=== PATIENT | male | born 1995 | race Caucasian/White ===

== ENCOUNTER 2022-02-26 20:08 | Emergency (ER) | payer SELFPAY ==
[2022-02-26 20:14] VITALS: BP 170/96; RESP 18; BMI 29.1
--- NOTE | 2022-02-26 20:38 | ED_ITS ---
HPI - Animal Bite General: Chief Complaint: Animal Bite Stated Complaint: snake bite Time Seen by Provider: 02/26/22 20:24 Source: patient Mode of arrival: ambulatory Limitations: no limitations History of Present Illness: 26-year-old male states he was walking out is wearing rubber boots and got bit by water moccasin on his right lower leg roughly an hour ago. He did not think it went through his boot originally but he likely did have a small puncture wound. He has no swelling at this site. He denies any pain currently denies any worsening proving factors. Associated symptoms: Deny chills, fever(s) or headache(s) Review of Systems Const: Denies: fever(s), chills, body aches or change in appetite Eyes: Denies: blurry vision or eye discomfort ENMT: Denies: throat pain or dental pain Card: Denies: chest pain Resp: Denies: dyspnea GI: Denies: abdominal pain, nausea, vomiting or diarrhea : Denies: dysuria Musc: Denies: neck pain or back pain Skin/Breast: Denies: rash Neuro: Denies: headache(s) Psych: Denies: depression [place]/Lymph: Denies: easy bruising All/Imm: Denies: urticaria Physical Exam Const: COMMON NORMALS: no acute distress, patient oriented x3 and healthy appearing HENMT: COMMON NORMALS: normocephalic and atraumatic HEAD & SCALP: normocephalic and atraumatic Eye: COMMON NORMALS: Equal, round and reactive pupils present and EOMs intact bilaterally PUPIL: Yes Equal, round and reactive pupils present Neck/C-Spine: COMMON NORMALS: full ROM and supple Chest: COMMONS NORMALS: normal inspection of the chest and normal palpation of entire chest wall Resp: COMMON NORMALS: normal respiratory effort, No retractions, No use of accessory muscles and clear to auscultation bilaterally AUSCULTATION: clear to auscultation bilaterally Cardio: COMMON NORMALS: regular rate, regular rhythm and No murmurs present (Cardio) RATE: regular rate RHYTHM: regular rhythm GI: COMMON NORMALS: Normal to inspection, nondistended, normoactive bowel sounds present, Soft to palpation, non-tender and no masses PALPATION: Yes Soft to palpation Extremity: NARRATIVE EXTREMITY EXAM: Small puncture wound to right lower leg no swelling at this time no erythema. Neuro: COMMON NORMALS: patient oriented x3, moves all extremities and no focal motor deficits Psych: COMMON NORMALS: mental status grossly normal, Normal thought process present and cooperative THOUGHT PROCESS: Normal thought process present Skin: COMMON NORMALS: no rashes or lesions noted and no wounds GENERAL SKIN EXAM: no rashes or lesions noted Course Vital Signs: Vital signs: Vital Signs Respiratory Rate 18 02/26/22 20:14 Blood Pressure 170/96 02/26/22 20:14 MDM - Animal Bite Medical Decision Making Patient presents here with a snakebite he has no signs of envenomation here I did observe him 2 hours he still has no redness or swelling or pain he is stable for discharge follow-up PCP return if worsening. Lab Data : 02/26/22 21:15 02/26/22 21:15 Laboratory Results WBC 9.4 10^3/uL (4.0-10.0) 02/26/22 21:15 RBC 5.08 10^6/uL (4.1-5.3) 02/26/22 21:15 Hgb 15.5 g/dL (11.7-16.6) 02/26/22 21:15 Hct 44.1 % (42.0-52.0) 02/26/22 21:15 MCV 86.8 fl (80-94) 02/26/22 21:15 MCH 30.5 pg (28.0-34.0) 02/26/22 21:15 MCHC 35.1 g/dL (30.0-36.0) 02/26/22 21:15 RDW 12.2 % (12.1-15.1) 02/26/22 21:15 Plt Count 280 10^3/cmm (130-400) 02/26/22 21:15 MPV 10.2 fL (7.4-10.4) 02/26/22 21:15 Neut % (Auto) 67.2 % 02/26/22 21:15 Lymph % (Auto) 24.7 % 02/26/22 21:15 [place] % (Auto) 6.6 % 02/26/22 21:15 Eos % (Auto) 0.6 % 02/26/22 21:15 Baso % (Auto) 0.3 % 02/26/22 21:15 Neut # (Auto) 6.29 10^3/uL (1.8-7.7) 02/26/22 21:15 Lymph # (Auto) 2.3 10^3/uL (0.8-4.8) 02/26/22 21:15 [place] # (Auto) 0.6 10^3/uL (0.2-0.9) 02/26/22 21:15 Eos # (Auto) 0.1 10^3/uL (0.0-0.8) 02/26/22 21:15 Baso # (Auto) 0.0 10^3/uL (0.0-0.1) 02/26/22 21:15 Nucleated RBC % (auto) 0 % 02/26/22 21:15 Nucleated RBCs # 0.0 /100WBC 02/26/22 21:15 PT 14.20 SECONDS (12.1-14.9) 02/26/22 21:15 INR 1.07 (0.8-1.2) 02/26/22 21:15 Sodium 139 mmol/L (136-145) 02/26/22 21:15 Potassium 3.6 mmol/L (3.5-5.1) 02/26/22 21:15 Chloride 103 mmol/L (98-107) 02/26/22 21:15 BUN 15 mg/dL (6-20) 02/26/22 21:15 Glucose 81 mg/dL (65-115) 02/26/22 21:15 Calculated Osmolality 288 mOsm/kg (285-295) 02/26/22 21:15 Calcium 9.1 mg/dL (8.5-10.5) 02/26/22 21:15 Discharge Plan Discharge Patient Disposition: Home Clinical Impression: Snake bite Condition: Stable Discharge Orders: Discharge ED (Routine); Ordered 02/26/22 Ordered By: Mina Brown Discharge Diet: Advance as tolerated Discharge Activity: Resume usual activity Patient Instructions: Snake Bite (ED) Coding Level of Care Code ED Hoisting Engineer Pile Driving for Valery Fwd Exam Comprehensive
[2022-02-26 21:24] LABS: Basophils % 0.3 %; Eosinophils # 0.1 10^3/uL (0.0-0.8); Eosinophils % 0.6 %; Hematocrit 44.1 % (42.0-52.0); Hemoglobin 15.5 g/dL (11.7-16.6); Lymphocytes # 2.3 10^3/uL (0.8-4.8); Lymphocytes % 24.7 %; Mean Corpuscular HGB Conc 35.1 g/dL (30.0-36.0); Mean Corpuscular Hemoglobin 30.5 pg (28.0-34.0); Mean Corpuscular Volume 86.8 fl (80-94); Mean Platelet Volume 10.2 fL (7.4-10.4); Monocytes # 0.6 10^3/uL (0.2-0.9); Monocytes % 6.6 %; Neutrophils # 6.29 10^3/uL (1.8-7.7); Neutrophils % 67.2 %; Nucleated Red Blood Cells % 0 %; Platelet Count 280 10^3/cmm (130-400); Red Blood Count 5.08 10^6/uL (4.1-5.3); Red Cell Distribution Width 12.2 % (12.1-15.1); White Blood Count 9.4 10^3/uL (4.0-10.0)
[2022-02-26 21:43] LABS: INR 1.07 (0.8-1.2)
[2022-02-26 21:52] LABS: Anion Gap 19.6 (5-19); Blood Urea Nitrogen 15 mg/dL (6-20); Calcium 9.1 mg/dL (8.5-10.5); Carbon Dioxide 20 mmol/L (22-29); Chloride 103 mmol/L (98-107); Glomerular Filtration Rate 66.7 mL/min (90-130); Glucose 81 mg/dL (65-115); Osmolality Calculated 288 mOsm/kg (285-295); Potassium 3.6 mmol/L (3.5-5.1); Sodium 139 mmol/L (136-145)
[2022-02-26 22:05] VITALS: BP 151/95; PULSE 81; RESP 16; O2SAT 98
== END 2022-02-26 22:06 | disposition home or self-care (01) ==
PROVIDERS: Emergency Provider Emergency Medicine
DX: T63.091A Toxic effect of venom of other snake, accidental (unintentional), initial encounter (principal)
CPT/HCPCS: 80048; 85025; 85610; 99282

== ENCOUNTER 2022-11-10 14:58 | Outpatient (CLI) | payer SELFPAY | END 2022-11-10 14:59 | disposition home or self-care (01) | LOC: SPT 14:59 | PROVIDERS: PCP Electrodiagnostic Medicine; Visit Provider Podiatrist Foot & Ankle Surgery | DX: Z46.89 Encounter for fitting and adjustment of other specified devices (principal); M25.571 Pain in right ankle and joints of right foot; S93.401D Sprain of unspecified ligament of right ankle, subsequent encounter; X58.XXXD Exposure to other specified factors, subsequent encounter | CPT/HCPCS: L4361 ==

== ENCOUNTER 2022-12-01 11:49 | Outpatient (CLI) | payer SELFPAY | END 2022-12-01 11:50 | disposition home or self-care (01) | LOC: SPT 11:49 | PROVIDERS: PCP Electrodiagnostic Medicine; Visit Provider Podiatrist Foot & Ankle Surgery | DX: Z46.89 Encounter for fitting and adjustment of other specified devices (principal); S93.401D Sprain of unspecified ligament of right ankle, subsequent encounter; S96.911D Strain of unspecified muscle and tendon at ankle and foot level, right foot, subsequent encounter; X58.XXXD Exposure to other specified factors, subsequent encounter | CPT/HCPCS: L1902 ==

== ENCOUNTER → 2022-12-14 10:45 | Outpatient (BNVA) | payer SELFPAY | PROVIDERS: PCP Electrodiagnostic Medicine; Visit Provider Podiatrist Foot & Ankle Surgery | DX: S93.401A Sprain of unspecified ligament of right ankle, initial encounter (principal); S96.911A Strain of unspecified muscle and tendon at ankle and foot level, right foot, initial encounter; W01.0XXA Fall on same level from slipping, tripping and stumbling without subsequent striking against object, initial encounter | CPT/HCPCS: 73610 ==

== ENCOUNTER 2025-06-21 14:57 | Emergency (ER) | payer SELFPAY ==
[2025-06-21 15:03] VITALS: BP 141/96; PULSE 90; RESP 18; TEMP 36.7; O2SAT 97
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
--- OUTSIDE RECORDS SUMMARY | 2025-06-21 16:09 | XMS_ITS | Encounter Summary ---
Author Organization [facility] Address [address] [place] [address] Care Team Providers Care Customs Examiner Name Role Phone Unavailable Primary Care Provider Unavailabl e Encounter Details Date Type Department Care Team (Latest Contact Info) Description 07/24/2003 Outpatient Historical [facility] Ear, Nose and Throat [address] [place] 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
--- OUTSIDE RECORDS SUMMARY | 2025-06-21 16:09 | XMS_ITS | Encounter Summary ---
Author Organization [facility] Address [address] [place] [address] Care Team Providers Care Vacuum Truck Driver Name Role Phone Unavailable Primary Care Provider Unavailabl e Encounter Details Date Type Department Care Team (Latest Contact Info) Description 06/21/2002 Outpatient Historical [facility] Ear, Nose and Throat E [place] 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
--- OUTSIDE RECORDS SUMMARY | 2025-06-21 16:09 | XMS_ITS | Encounter Summary ---
Author Organization [facility] Address [address] [place] [address] Care Team Providers Care Filler Block Inserter Remover Name Role Phone Unavailable Primary Care Provider Unavailabl e Encounter Details Date Type Department Care Team (Latest Contact Info) Description 11/18/1999 Outpatient Historical [facility] OT[facility]OLOG[facility] Jim Zacarias MD [address] [place] [address] Unspecified chronic suppurative otitis media (Primary Dx) Social History Tobacco Use Types Packs/Day Years Used Date Smoking Tobacco: Never Assessed Sex and Gender Information Value Date Recorded Sex Assigned at Not on file 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
--- OUTSIDE RECORDS SUMMARY | 2025-06-21 16:09 | XMS_ITS | Encounter Summary ---
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
--- OUTSIDE RECORDS SUMMARY | 2025-06-21 16:09 | XMS_ITS | Encounter Summary ---
Author Organization [facility] Address [address] [place] [address] Care Team Providers Care Silver Holloware Assembler Name Role Phone Unavailable Primary Care Provider Unavailabl e Encounter Details Date Type Department Care Team (Latest Contact Info) Description 06/09/2002 Outpatient Historical [facility] Ear, Nose and Throat E [place] [address] [place] [phone] Jim Zacarias MD [address] [place] [address] Hypertrophy tonsils/adenoids (Primary Dx); RESP SYSTEM DISEASE NEC Social History Tobacco Use Types Packs/Day Years Used Date Smoking Tobacco: Never Assessed Sex and Gender Information Value Date Recorded Sex Assigned at Not on file Legal Sex Male 4:49 AM BODY MAN Gender Identity Not on file Sexual Orientation Not on file documented as of this encounter Plan of Treatment Not on file documented as of this encounter Visit Diagnoses Diagnosis Hypertrophy tonsils/adenoids- Primary Hypertrophy of tonsil with adenoids Other diseases of respiratory system, not elsewhere classified documented in this encounter
--- OUTSIDE RECORDS SUMMARY | 2025-06-21 16:09 | XMS_ITS | Encounter Summary ---
Author Organization [facility] Address [address] [place] [address] Care Team Providers Care Brusher And Shearer Name Role Phone Unavailable Primary Care Provider Unavailabl e Encounter Details Date Type Department Care Team (Latest Contact Info) Description 09/30/1999 Outpatient Historical [facility] OTOL[facility]OLOGY Jim Zacarias MD [address] [place] [address] Other specified forms of hearing loss (Primary Dx) Social History Tobacco Use Types Packs/Day Years Used Date Smoking Tobacco: Never Assessed Sex and Gender Information Value Date Recorded Sex Assigned at Not on file Legal Sex Male 4:49 AM 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
--- OUTSIDE RECORDS SUMMARY | 2025-06-21 16:09 | XMS_ITS | Encounter Summary ---
Author Organization [facility] Address [address] [place] [address] Care Team Providers Care Marine Oiler Name Role Phone Unavailable Primary Care Provider Unavailabl e Encounter Details Date Type Department Care Team (Latest Contact Info) Description 12/16/2004 Outpatient Historical [facility] [address] [place] [address] Laurence French MD NO ADDRESS ON FILE CONVULSIONS, OTHER (CMS/HCC) (Primary Dx) Social History Tobacco Use Types Packs/Day Years Used Date Smoking Tobacco: Never Assessed Sex and Gender Information Value Date Recorded Sex Assigned at Not on file Legal Sex Male 4:49 AM SHIP WIRER Gender Identity Not on file Sexual Orientation Not on file documented as of this encounter Plan of Treatment Not on file documented as of this encounter Visit Diagnoses Diagnosis Other convulsions- Primary documented in this encounter
--- OUTSIDE RECORDS SUMMARY | 2025-06-21 16:09 | XMS_ITS | Encounter Summary ---
Author Organization [facility] Address [address] [place] [address] Care Team Providers Care Tree Wrapper Name Role Phone Unavailable Primary Care Provider Unavailabl e Encounter Details Date Type Department Care Team (Latest Contact Info) Description 12/25/2002 Outpatient Historical [facility] Ear, Nose and Throat E [place] 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
--- OUTSIDE RECORDS SUMMARY | 2025-06-21 16:09 | XMS_ITS | Encounter Summary ---
Author Organization [facility] Address [address] [place] [address] Care Team Providers Care Car Body Inspector Name Role Phone Unavailable Primary Care Provider Unavailabl e Encounter Details Date Type Department Care Team (Latest Contact Info) Description 12/11/2002 Outpatient Historical [facility] Ear, Nose and Throat [address] [place] 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
--- OUTSIDE RECORDS SUMMARY | 2025-06-21 16:09 | XMS_ITS | Encounter Summary ---
Author Organization [facility] Address [address] [place] [address] Care Team Providers Care Bench Jeweler Name Role Phone Unavailable Primary Care Provider Unavailabl e Encounter Details Date Type Department Care Team (Latest Contact Info) Description 04/09/2004 Outpatient Historical [facility] Ear, Nose and Throat [address] [place] 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
--- OUTSIDE RECORDS SUMMARY | 2025-06-21 16:09 | XMS_ITS | Encounter Summary ---
Author Organization [facility] Address [address] [place] [address] Care Team Providers Care Detective Chief Name Role Phone Unavailable Primary Care Provider Unavailabl e Encounter Details Date Type Department Care Team (Latest Contact Info) Description 12/25/2002 Outpatient Historical [facility] Ear, Nose and Throat [address] [place] 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
--- OUTSIDE RECORDS SUMMARY | 2025-06-21 16:09 | XMS_ITS | Encounter Summary ---
Author Organization [facility] Address [address] [place] [address] Care Team Providers Care Printing Worker Supervisor Name Role Phone Unavailable Primary Care Provider Unavailabl e Encounter Details Date Type Department Care Team (Latest Contact Info) Description 05/22/2003 Outpatient Historical [facility] Ear, Nose and Throat [address] [place] 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
--- OUTSIDE RECORDS SUMMARY | 2025-06-21 16:09 | XMS_ITS | Encounter Summary ---
Author Organization [facility] Address [address] [place] [address] Care Team Providers Care Head Girls Golf Coach Name Role Phone Unavailable Primary Care Provider Unavailabl e Encounter Details Date Type Department Care Team (Latest Contact Info) Description 06/22/2003 Outpatient Historical [facility] [address] [place] [address] Jim Zacarias MD [address] [place] [address] OTITIS MEDIA NOS (Primary Dx) Social History Tobacco Use Types Packs/Day Years Used Date Smoking Tobacco: Never Assessed Sex and Gender Information Value Date Recorded Sex Assigned at Not on file 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
--- OUTSIDE RECORDS SUMMARY | 2025-06-21 16:09 | XMS_ITS | Encounter Summary ---
Author Organization [facility] Address [address] [place] [address] Care Team Providers Care Office Admin Name Role Phone Unavailable Primary Care Provider Unavailabl e Encounter Details Date Type Department Care Team (Latest Contact Info) Description 06/22/2003 Outpatient Historical [facility] Ear, Nose and Throat 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
--- OUTSIDE RECORDS SUMMARY | 2025-06-21 16:09 | XMS_ITS | Encounter Summary ---
Author Organization [facility] Address [address] [place] [address] Care Team Providers Care Outpatient Coding Specialist Name Role Phone Unavailable Primary Care Provider Unavailabl e Encounter Details Date Type Department Care Team (Latest Contact Info) Description 01/17/2003 Outpatient Historical [facility] Ear, Nose and Throat [address] [place] 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
--- OUTSIDE RECORDS SUMMARY | 2025-06-21 16:09 | XMS_ITS | Encounter Summary ---
Author Organization [facility] Address [address] [place] [address] Care Team Providers Care Real Estate Listing Consultant Name Role Phone Unavailable Primary Care Provider Unavailabl e Encounter Details Date Type Department Care Team (Latest Contact Info) Description 05/04/2003 Outpatient Historical [facility] [place] [facility] Throat 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
--- OUTSIDE RECORDS SUMMARY | 2025-06-21 16:09 | XMS_ITS | Encounter Summary ---
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
--- OUTSIDE RECORDS SUMMARY | 2025-06-21 16:09 | XMS_ITS | Encounter Summary ---
Author Organization [facility] Address [address] [place] [address] Care Team Providers Care Transportation Agent Name Role Phone Unavailable Primary Care Provider Unavailabl e Encounter Details Date Type Department Care Team (Latest Contact Info) Description 04/09/2004 Outpatient Historical [facility] Ear, Nose and Throat [address] 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
--- OUTSIDE RECORDS SUMMARY | 2025-06-21 16:09 | XMS_ITS | Encounter Summary ---
Author Organization [facility] Address [address] [place] [address] Care Team Providers Care Bindery Machine Tender Name Role Phone Unavailable Primary Care Provider Unavailabl e Encounter Details Date Type Department Care Team (Latest Contact Info) Description 03/19/2003 Outpatient Historical [place] [facility] Ear, Nose and Throat [address] 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
--- OUTSIDE RECORDS SUMMARY | 2025-06-21 16:09 | XMS_ITS | Encounter Summary ---
Author Organization [facility] Address [address] [place] [address] Care Team Providers Care Certified Novell Engineer Name Role Phone Unavailable Primary Care Provider Unavailabl e Encounter Details Date Type Department Care Team (Latest Contact Info) Description 12/12/2004 Outpatient Historical [facility] [address] 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
--- OUTSIDE RECORDS SUMMARY | 2025-06-21 16:09 | XMS_ITS | Encounter Summary ---
Author Organization [facility] Address [address] [place] [address] Care Team Providers Care Junior Web Developer Name Role Phone Unavailable Primary Care Provider Unavailabl e Encounter Details Date Type Department Care Team (Latest Contact Info) Description 12/17/2004 Outpatient Historical [facility] [address] [place] [address] Laurence French MD NO ADDRESS ON FILE SYNCOPE AND COLLAPSE (Primary Dx) Social History Tobacco Use Types Packs/Day Years Used Date Smoking Tobacco: Never Assessed Sex and Gender Information Value Date Recorded Sex Assigned at Not on file 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
--- OUTSIDE RECORDS SUMMARY | 2025-06-21 16:09 | XMS_ITS | Encounter Summary ---
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
--- OUTSIDE RECORDS SUMMARY | 2025-06-21 16:09 | XMS_ITS | Encounter Summary ---
Author Organization [facility] Address [address] [place] [address] Care Team Providers Care Scientific Glass Blower Name Role Phone Unavailable Primary Care Provider Unavailabl e Encounter Details Date Type Department Care Team (Latest Contact Info) Description 06/16/2004 Outpatient Historical [facility] Ear, Nose and Throat [address] 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
--- OUTSIDE RECORDS SUMMARY | 2025-06-21 16:09 | XMS_ITS | Encounter Summary ---
Author Organization [facility] Address [address] [place] [address] Care Team Providers Care Polyethylene Combiner Name Role Phone Unavailable Primary Care Provider Unavailabl e Encounter Details Date Type Department Care Team (Latest Contact Info) Description 09/30/1999 Outpatient Historical [facility] Jim Zacarias MD [address] [place] [address] Unspecified chronic suppurative otitis media (Primary Dx); Unspecified conductive hearing loss Social History Tobacco Use Types Packs/Day Years Used Date Smoking Tobacco: Never Assessed Sex and Gender Information Value Date Recorded Sex Assigned at Not on file 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
--- OUTSIDE RECORDS SUMMARY | 2025-06-21 16:10 | XMS_ITS | Encounter Summary ---
Author Organization [facility] Address [address] [facility] Attn: [place] [address] Care Team Providers Care Mirror Machine Feeder Name Role Phone Unavailable Primary Care Provider Unavailabl e Encounter Details Date Type Department Care Team (Late st Contact Info) Description 12/17/2004 Outpatient Historical Laurence French MD NO ADDRESS ON FILE OTHER ALTERATION OF CONSCIOUSNESS (Primary Dx) Social History Tobacco Use Types Packs/Day Years Used Date Smoking Tobacco: Never Assessed Sex and Gender Information Value Date Recorded Sex Assigned at Not on file 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
--- OUTSIDE RECORDS SUMMARY | 2025-06-21 16:10 | XMS_ITS | Encounter Summary ---
Author Organization [facility] Address [address] [place] [address] Care Team Providers Care Financial Advisor Trainee Name Role Phone Unavailable Primary Care Provider Unavailabl e Encounter Details Date Type Department Care Team (Latest Contact Info) Description 07/06/[address] [facility] Ear, Nose and Throat [address] [place] 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
--- OUTSIDE RECORDS SUMMARY | 2025-06-21 16:10 | XMS_ITS | Encounter Summary ---
Author Organization [facility] Address [address] [place] [address] Care Team Providers Care Construction Trades Teacher Name Role Phone Unavailable Primary Care Provider Unavailabl e Encounter Details Date Type Department Care Team (Latest Contact Info) Description 03/15/2000 Outpatient Historical [facility] Sulaiman Cole [address] [place] [address] Other specified forms of hearing loss (Primary Dx) Social History Tobacco Use Types Packs/Day Years Used Date Smoking Tobacco: Never Assessed Sex and Gender Information Value Date Recorded Sex Assigned at Not on file 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
--- OUTSIDE RECORDS SUMMARY | 2025-06-21 16:10 | XMS_ITS | Encounter Summary ---
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
--- OUTSIDE RECORDS SUMMARY | 2025-06-21 16:10 | XMS_ITS | Encounter Summary ---
Author Organization [facility] Address [address] [place] [address] Care Team Providers Care Chrome Plater Helper Name Role Phone Unavailable Primary Care Provider Unavailabl e Encounter Details Date Type Department Care Team (Latest Contact Info) Description 07/27/[address] [facility] Ear, Nose and Throat [address] [place] 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
--- OUTSIDE RECORDS SUMMARY | 2025-06-21 16:10 | XMS_ITS | Encounter Summary ---
Author Organization [facility] Address [address] [place] [address] Care Team Providers Care Model And Mold Maker Name Role Phone Unavailable Primary Care Provider Unavailabl e Encounter Details Date Type Department Care Team (Latest Contact Info) Description 08/17/[address] [facility] Ear, Nose and Throat [address] [place] 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
--- OUTSIDE RECORDS SUMMARY | 2025-06-21 16:10 | XMS_ITS | Encounter Summary ---
Author Organization [facility] Address [address] [place] [address] Care Team Providers Care Panel Edge Painter Name Role Phone Unavailable Primary Care Provider Unavailabl e Encounter Details Date Type Department Care Team (Latest Contact Info) Description 09/14/2001 Outpatient Historical [facility] Ear, Nose and Throat [address] [place] 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
--- OUTSIDE RECORDS SUMMARY | 2025-06-21 16:10 | XMS_ITS | Clinical Summary ---
Author Organization [facility] Address [address] [facility] Attn: [place] [address] Care Team Providers Care Fiberglass Boat Builder Name Role Phone Unavailable Primary Care Provider Unavailabl e Allergies Active Allergy Reactions Criticality Noted Date Comments Latex Hives High 08/15/2013 Promethazine Other (See Comments) High 04/01/2009 Blood pressure, eyes rolled back, body temperature dropped to 70's Active Problems Problem Noted Date Diagnosed Date Flexor tendon laceration, finger, open wound 02/2014 Fracture lumbar vertebra-closed 12/15/2011 Immunizations Immunization Administration Dates Next Due (M-M-R II/PRIORIX)(12 MO UP) MEASLES, MUMPS AND RUBELLA VIRUS VACCINE, 0.5 ML IM/SUBCUT 05/31/2000,09/19/1996 Dt Dtp Dtap Vaccine 05/31/2000, 7,07/20/1996,1995,1995 HIB, Unspecified Formulation 03/21/1997, 07/20/1996,03/22/1996,1995 Hepatitis B Vaccine 03/22/1996, 6,1995,1995 IPV/OPV 05/31/2000, 6,03/22/1996,1995 Family History Relation Name Status Comments Mother Alive Social History Tobacco Use Types Packs/Day Years Used Date Smoking Tobacco: Never Smokeless Tobacco: Never Alcohol Use Standard Drinks/Week Comments No 0 (1 standard drink = 0.6 oz pur e alcohol) Sex and Gender Information Value Date Recorded Sex Assigned at Not on file 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
--- OUTSIDE RECORDS SUMMARY | 2025-06-21 16:10 | XMS_ITS | Encounter Summary ---
Author Organization [facility] Address [address] [place] [address] Care Team Providers Care Power Brake Rebuilder Name Role Phone Unavailable Primary Care Provider Unavailabl e Encounter Details Date Type Department Care Team (Latest Contact Info) Description 02/25/2000 Outpatient Historical [facility] Jim Zacarias MD [address] [place] [address] Unspecified chronic suppurative otitis media (Primary Dx) Social History Tobacco Use Types Packs/Day Years Used Date Smoking Tobacco: Never Assessed Sex and Gender Information Value Date Recorded Sex Assigned at Not on file 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
--- OUTSIDE RECORDS SUMMARY | 2025-06-21 16:10 | XMS_ITS | Clinical Summary ---
Author Organization [facility] Address [address] [facility] [place] [address] Care Team Providers Care Manager Business Banking Name Role Phone Unavailable Primary Care Provider Unavailabl e Allergies Active Allergy Reactions Criticality Noted Date Comments Latex Hives High 08/15/2013 Promethazine Other (See Comments) High 04/01/2009 Blood pressure, eyes rolled back, body temperature dropped to 70's Medications ibuprofen (MOTRIN) 600 mg Oral tablet Take 1 Tab by mouth every 6 hours as needed for Pain, Mild. 90 Tab 0 2 Active FLUOXETINE HCL (PROZAC ORAL) Take by mouth daily. Active HYDROcodone-malini taminophen (NORCO) 5-325 mg Oral tablet Take 1 Tab by mouth every 4 hours as needed for Pain, Moderate. 4 Tab None 3 Active ibuprofen (MOTRIN) 400 mg Oral tablet Take 1 Tab by mouth every 6 hours as needed for Pain, Mild. 20 Tab None 3 Active naproxen (NAPROSYN) 500 mg tablet Take 500 mg by mouth 2 times daily with meals. Active OTHER Provider please include Medication name, dose, route and frequency Active HYDROcodone-malini taminophen (NORCO) 10-325 mg Tablet Take 1 Tab by mouth every 4 hours as needed for Pain. 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4 cm (6' 1 ) 09/26/2013 10:44 AM LUMP RECEIVER Body Mass Index 22.82 09/26/2013 10:44 AM LUMP RECEIVER Plan of Treatment Health Maintenance Due Date Last Done Comments DTAP/TDAP/TD VACCINES (6 - Tdap) 2006 05/31/2000, 03/21/1997, 07/20/1996, Additional history exists HPV VACCINES (1 - 3-dose SCD M series) 2022 INFLUENZA VACCINE (#1) 2025 HEPATITIS B VACCINES Completed 03/22/1996, 1995, 1995, Additional history exists Insurance [address] [place] [address] [place] Advance Directives For more information, please contact: [phone] * Full Code (Latest Code Status on File) Date Activated Date Inactivated Comments 08/16/2013 1:43 PM 08/16/2013 7:59 PM
--- OUTSIDE RECORDS SUMMARY | 2025-06-21 16:10 | XMS_ITS | Encounter Summary ---
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
--- OUTSIDE RECORDS SUMMARY | 2025-06-21 16:10 | XMS_ITS | Data Portability ---
Author Organization [facility], [facility] Address [address] [address] Assessment No assessment recorded. Plan of Treatment Reminders Order Date Submit Date Provider Last Modified By Organization Details Last Modified Time Details Appointments None recorded. Lab rapid strep group A, throat 2022 023 [email or web address] [facility] ([facility]), [address] [place] [address], [phone], 3 09:31:35 Referral None recorded. Procedures None recorded. Surgeries None recorded. Imaging XR, hand, 3 or more view 2024 025 [email or web address] [facility], [address] [place] [address], [id number], 5 16:00:44 Medication Orders azithromyci n 250 mg tablet 2022 023 [id number], [address], [place], [phone], 5 09:26:35 Patient TargetsNo targets recorded. Patient InstructionsNo instructions recorded. Reason for Referral None Reported. Results Created Date Observation Date Name Description Value Unit Range Abnormal Flag Note LastModifiedBy Organization Detail LastModifiedTime 08/04/20 23 08/04/2023 rapid strep group A, throa t Strep positi ve Not Available [facility] ([facility]) [address] [place] [address], [phone], 08/04/2023 08:25:35 11/25/19 25 11/23/2024 XR, hand, 3 or more view No observ ation record ed. [facility] [address] [place], [address], 12/12/2024 08:55:19 Result Notes None recorded. Problems Name Problem SNOMED Code Status Onset Date Resolution Date Notes Provider Name and Address Organization Details Recorded Time Puncture wound of finger 281221005 Active 2022 David Block MD [address] [place] [address], [phone], [facility] 3 12:50:39 Contusion of right hand 91444635330947 108 Active 2024 David Block MD [address] [place] [address], [phone], [facility] 5 09:48:58 Injury of hand 584048563 Active 2024 David Block MD [address] [place] [address], [phone], [facility] 5 14:39:16 Problem Notes None recorded. Medical Equipment None Reported. Allergies Allergen ID Allergen Name Allergen Category Reaction Reaction Severity Criticality Documentation Date Start Date Code Code System Note Provider Name and Address Organization Details Recorded Time 10422 Phenergan medicatio n anaphylax is Not available Not available 04/03/2023 93768 8 RxNorm React ion: Anaph ylaxi s; Comme nt: Recor ded 10/21 11:10 AM by Sameer bryson, Offic e Visit ; Promo silverio; Signi yeimi ce: *; ; Not Available [facility] 3 02:28:04 34575 morphine medicatio n vomiting Not available low 05/11/2023 7052 RxNorm ROBELSA EDWARDS [facility] 3 16:06:43 36796 amoxicill in medicatio n Not available Not available Not available 08/04/2023 723 RxNorm Jazlyn Castorena daisy [facility], [place] 3 08:23:33 07462 hydrocodo ne Not available Not available Not available Not available 08/04/2023 5489 RxNorm Jazlyn Raffaele villa [facility], [place] 3 08:23:40 Medications Name Sig Start Date Stop Date Status Note LastModified by Organization Details LastModified Time azithromy jessi 250 mg tablet TAKE 2 TABLETS (500 MG) BY ORAL ROUTE ONCE DAILY FOR 1 DAY THEN 1 TABLET (250 MG) BY ORAL ROUTE ONCE DAILY FOR 4 DAYS 11/23 completed Not Available Not Available Not Available ibuprofen 800 mg tablet three times daily, as needed 11/23 completed 0; Recorded 10/01/19 23 10:19AM by Yesica Kwong, Office Visit; Not Available Not Available Not Available Vitals Date Recorded Body height Body mass index (BMI) Body weight Oxygen saturation Oxygen saturation in Arterial blood by Pulse oximetry Heart rate Body temperature Systolic And Diastolic Provider Name and Address Organization Details Last Updated DateTime 5 187.96 cm 31.2 kg/m2 135093. 95 g 98 % 98 % 82 /min 98.2 [degF] 142/82 mm[Hg] Laura Morris [facility], [place] 5 09:31:54 Date Recorded Body height Respiratory rate Body mass index (BMI) Body weight Body temperature Heart rate Oxygen saturation Oxygen saturation in Arterial blood by Pulse oximetry Systolic And Diastolic Provider Name and Address Organization Details Last Updated DateTime 3 179.07 cm 20 /min 32.6 kg/m2 992700. 35 g 98 [degF] 85 /min 96 % 96 % 138/80 mm[Hg] ROBEL GRACE [facility], [place] 3 16:08:20 Date Recorded Body height Body mass index (BMI) Body weight Oxygen saturation Oxygen saturation in Arterial blood by Pulse oximetry Heart rate Body temperature Systolic And Diastolic Provider Name and Address Organization Details Last Updated DateTime 3 185.42 cm 30.3 kg/m2 102730. 25 g 95 % 95 % 86 /min 97.1 [degF] 124/80 mm[Hg] Jazlyn Castorena [facility], [place] 3 08:24:06 Social History None recorded. Functional Status None recorded. Mental Status None recorded. Family History Nothing Reported. Medical History No medical history recorded. Past Encounters Encounter ID Performer Location Encounter Start Date Encounter Closed Date Diagnosis/Indication Diagnosis SNOMED-CT Code Diagnosis ICD10 Code Diagnosis IMO Codes Diagnosis Note [id number] David Block MD [facility] ([facility]) [address] [place] [phone] 05/11/2023 15:56:54 05/11/2023 17:30:17 Puncture wound of finger 583913062 S61.239A Patient is needing tetanus, but due to cost the patient is going to get it through the health department . Discussed wound care. No sutures needed. [id number] JHONNY VALENCIA [facility] ([facility]) [address] [place] [phone] 08/04/2023 08:09:37 08/04/2023 09:24:42 Sore throat 931362822 J02.9 Streptococ felicita sore throat 30104737 J02.0 Strep positive today. Start azithromyc in today. Encouraged to continue tylenol and ibuprofen as needed for pain and fever. Push fluids and use cool mist humidifier at night. Change toothbrush out after 2 days of antibiotic s. If worsening condition or no improvemen t in 5-7 days, return for further evaluation . [id number] David Block MD [facility] ([facility]) [address] [place] [phone] 11/23/2024 09:00:44 11/27/2024 16:00:43 Injury of hand 807650690 S69.91XA X-rays were obtained of the right hand. No obvious fracture noted. Hardware appeared to be intact. Contusion of right hand 1554198251 5980102 S60.221A Likely contusion based off history, exam, and images. Discussed RICE.,/Ibu profen to help with pain. Health Concerns Section Related Observation LastModified by Organization Detai ls LastModified Time None Recorded Concern Status LastModified by Organization Details LastModified Time None Recorded Advance Directives Directive None Recorded Payers Insurance Date Sequence Insurance Name Policy Number Policy Varghese Covered Member ID Varghese Member ID Guarantor Name 05/11/2023 1 *SELF PAY* Rohith Nelson Notes Date Note Type Note Provider Name and Address Organization Details Recorded Time 05/11/2023 text/html ROS as noted in the HPI This is a 27-year-old gentleman that presents today with a puncture wound to his left second finger. Patient denies any other injury or concerns today. David Block MD [address] [place], [phone], [facility] 05/12/2023 12:57:47 08/04/2023 text/html Sore ThroatRepor silverio by PatientHPIFor quality, patient reportsdifficulty swallowing,hoarseness, sharp, andpressure. For severity, patient reportsworsening. For context, patient reportsothers with similar symptomsbut reportsno new medications. For associated symptoms, patient reportschoking,stiff neck, andmuffled voicebut reportsno fever,no nausea,no vomiting, andno headache. For location, patient reportsbilateral. For onset/timing, patient reportsdate of onset 08/04/23andsudden. For duration, patient reportsstarted 1 day(s) ago. For alleviating factors, patient reportsnothing gives relief.ROS as noted in the HPI Patient is a 27 year old male who presents to the walk in clinic today for a sore throat and nausea. Symptoms started yesterday. Denies fever. Has not been taking OTC medications. JHONNY VALENCIA [address] [place], [phone], [facility] 08/04/2023 08:39:48 11/23/2024 text/html ROS as noted in the HPI walk inx 1 day smashed between logs then punched door wtih right hand-hx hardware x 13 years ago David Block MD [address] [place] [address], [phone], [facility] 11/26/2024 14:39:33
--- OUTSIDE RECORDS SUMMARY | 2025-06-21 16:10 | XMS_ITS | Encounter Summary ---
Author Organization [facility] Address [address] [facility] Attn: [place] [address] Care Team Providers Care Cost Accounting Analyst Name Role Phone Unavailable Primary Care Provider Unavailabl e Encounter Details Date Type Department Care Team (Late st Contact Info) Description 06/09/2002 Outpatient Historical Jim Zacarias MD [address] [place] [address] Social History Tobacco Use Types Packs/Day Years Used Date Smoking Tobacco: Never Assessed Sex and Gender Information Value Date Recorded Sex Assigned at Not on file 

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
[2025-06-21] MEDS: orphenadrine 30 mg/mL Inj 2 mL 60 MG IM (16:39)
== END 2025-06-21 17:40 | disposition home or self-care (01) ==
PROVIDERS: Emergency Provider Physician Assistant; PCP Electrodiagnostic Medicine
DX: M54.2 Cervicalgia (principal)
CPT/HCPCS: 70450; 72125; 96372; 99284; J1885; J2360

== ENCOUNTER 2025-06-27 15:06 | Emergency (ER) | payer OTHER, SELFPAY ==
[2025-06-27 15:21] VITALS: BP 120/84; PULSE 73; TEMP 36.3; O2SAT 98
[2025-06-27 16:06] VITALS: BP 120/90; O2SAT 96
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
[2025-06-27] MEDS: fentaNYL 50 mcg/mL INJ 2mL IVP (16:57)
[2025-06-27] MEDS: orphenadrine 30 mg/mL Inj 2 mL 60 MG IV (16:57)
[2025-06-27 17:06] VITALS: BP 116/88; PULSE 93; O2SAT 98
--- OUTSIDE RECORDS SUMMARY | 2025-06-27 17:23 | XMS_ITS | Encounter Summary ---
Author Organization [facility] Address [address] [place] [address] Care Team Providers Care Dye And Chemical Coordinator Name Role Phone Unavailable Primary Care Provider Unavailabl e Encounter Details Date Type Department Care Team (Latest Contact Info) Description 05/04/2003 Outpatient Historical [facility] Ear, Nose and Throat E [place] 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
--- OUTSIDE RECORDS SUMMARY | 2025-06-27 17:23 | XMS_ITS | Encounter Summary ---
Author Organization [facility] Address [address] [place] [address] Care Team Providers Care Ring Attacher Name Role Phone Unavailable Primary Care Provider Unavailabl e Encounter Details Date Type Department Care Team (Latest Contact Info) Description 06/21/2002 Outpatient Historical [facility] Ear, Nose and Throat E [place] 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
--- OUTSIDE RECORDS SUMMARY | 2025-06-27 17:23 | XMS_ITS | Encounter Summary ---
Author Organization [facility] Address [address] [place] [address] Care Team Providers Care Clinical Documentation Specialist Name Role Phone Unavailable Primary Care Provider Unavailabl e Encounter Details Date Type Department Care Team (Latest Contact Info) Description 06/22/2003 Outpatient Historical [facility] Operating Room [address] [place] [address] Jim Zacarias MD [address] [place] [address] OTITIS MEDIA NOS (Primary Dx) Social History Tobacco Use Types Packs/Day Years Used Date Smoking Tobacco: Never Assessed Sex and Gender Information Value Date Recorded Sex Assigned at Not on file 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
--- OUTSIDE RECORDS SUMMARY | 2025-06-27 17:23 | XMS_ITS | Encounter Summary ---
Author Organization [facility] Address [address] [place] [address] Care Team Providers Care Rug Cleaner Hand Name Role Phone Unavailable Primary Care Provider Unavailabl e Encounter Details Date Type Department Care Team (Latest Contact Info) Description 12/25/2002 Outpatient Historical [facility] Ear, Nose and Throat E [place] 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
--- OUTSIDE RECORDS SUMMARY | 2025-06-27 17:23 | XMS_ITS | Encounter Summary ---
Author Organization [facility] Address [address] [place] [address] Care Team Providers Care Wrapping Checker Name Role Phone Unavailable Primary Care Provider Unavailabl e Encounter Details Date Type Department Care Team (Latest Contact Info) Description 12/11/2002 Outpatient Historical [facility] Ear, Nose and Throat [place] 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
--- OUTSIDE RECORDS SUMMARY | 2025-06-27 17:23 | XMS_ITS | Encounter Summary ---
Author Organization [facility] Address [address] [place] [address] Care Team Providers Care Marketing Automation Manager Name Role Phone Unavailable Primary Care Provider Unavailabl e Encounter Details Date Type Department Care Team (Latest Contact Info) Description 05/22/2003 Outpatient Historical [facility] Ear, Nose and Throat E [place] 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
--- OUTSIDE RECORDS SUMMARY | 2025-06-27 17:23 | XMS_ITS | Encounter Summary ---
Author Organization [facility] Address [address] [place] [address] Care Team Providers Care Field Artillery Basic Name Role Phone Unavailable Primary Care Provider Unavailabl e Encounter Details Date Type Department Care Team (Latest Contact Info) Description 03/19/2003 Outpatient Historical [facility] Ear, Nose and Throat [address] [place] 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
--- OUTSIDE RECORDS SUMMARY | 2025-06-27 17:23 | XMS_ITS | Encounter Summary ---
Author Organization [facility] Address [address] [place] [address] Care Team Providers Care Baggage Checker Name Role Phone Unavailable Primary Care Provider Unavailabl e Encounter Details Date Type Department Care Team (Latest Contact Info) Description 12/12/2004 Outpatient Historical [facility] [address] 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
--- OUTSIDE RECORDS SUMMARY | 2025-06-27 17:23 | XMS_ITS | Encounter Summary ---
Author Organization [facility] Address [address] [place] [address] Care Team Providers Care Supervisor Assembly Room Name Role Phone Unavailable Primary Care Provider Unavailabl e Encounter Details Date Type Department Care Team (Latest Contact Info) Description 06/09/2002 Outpatient Historical [facility] Ear, Nose and Throat [address] [place] 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
--- OUTSIDE RECORDS SUMMARY | 2025-06-27 17:23 | XMS_ITS | Encounter Summary ---
Author Organization [facility] Address [address] [place] [address] Care Team Providers Care Client Finance Analyst Name Role Phone Unavailable Primary Care Provider Unavailabl e Encounter Details Date Type Department Care Team (Latest Contact Info) Description 01/17/2003 Outpatient Historical [facility] Ear, Nose and Throat [address] [place] 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
--- OUTSIDE RECORDS SUMMARY | 2025-06-27 17:23 | XMS_ITS | Encounter Summary ---
Author Organization [facility] Address [address] [place] [address] Care Team Providers Care Cuff Setter Overlock Name Role Phone Unavailable Primary Care Provider Unavailabl e Encounter Details Date Type Department Care Team (Latest Contact Info) Description 12/25/2002 Outpatient Historical [facility] Ear, Nose and Throat [address] [place] 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
--- OUTSIDE RECORDS SUMMARY | 2025-06-27 17:23 | XMS_ITS | Encounter Summary ---
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
--- OUTSIDE RECORDS SUMMARY | 2025-06-27 17:23 | XMS_ITS | Encounter Summary ---
Author Organization [facility] Address [address] [place] [address] Care Team Providers Care Shaving Machine Operator Name Role Phone Unavailable Primary Care Provider Unavailabl e Encounter Details Date Type Department Care Team (Latest Contact Info) Description 04/09/2004 Outpatient Historical [facility] Ear, Nose and Throat [address] [place] 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
--- OUTSIDE RECORDS SUMMARY | 2025-06-27 17:23 | XMS_ITS | Encounter Summary ---
Author Organization [facility] Address [address] [place] [address] Care Team Providers Care Drive In Theater Attendant Name Role Phone Unavailable Primary Care Provider Unavailabl e Encounter Details Date Type Department Care Team (Latest Contact Info) Description 06/16/[address] [facility] Ear, Nose and Throat [address] [place] 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
--- OUTSIDE RECORDS SUMMARY | 2025-06-27 17:24 | XMS_ITS | Encounter Summary ---
Author Organization [facility] Address [address] [place] [address] Care Team Providers Care Cushion Sewer Name Role Phone Unavailable Primary Care Provider Unavailabl e Encounter Details Date Type Department Care Team (Latest Contact Info) Description 12/17/2004 Outpatient Historical [facility] [address] [place] [address] Laurence French MD NO ADDRESS ON FILE SYNCOPE AND COLLAPSE (Primary Dx) Social History Tobacco Use Types Packs/Day Years Used Date Smoking Tobacco: Never Assessed Sex and Gender Information Value Date Recorded Sex Assigned at Not on file 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
--- OUTSIDE RECORDS SUMMARY | 2025-06-27 17:24 | XMS_ITS | Encounter Summary ---
Author Organization [facility] Address [address] [place] [address] Care Team Providers Care Process Mechanic Name Role Phone Unavailable Primary Care Provider Unavailabl e Encounter Details Date Type Department Care Team (Latest Contact Info) Description 06/22/[address] [facility] Ear, Nose and Throat 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
--- OUTSIDE RECORDS SUMMARY | 2025-06-27 17:24 | XMS_ITS | Encounter Summary ---
Author Organization [facility] Address [address] [place] [address] Care Team Providers Care Biodiesel Engineering Manager Name Role Phone Unavailable Primary Care Provider Unavailabl e Encounter Details Date Type Department Care Team (Latest Contact Info) Description 09/30/1999 Outpatient Historical [facility] Jim Zacarias MD [address] [place] [address] Other specified forms of hearing loss (Primary Dx) Social History Tobacco Use Types Packs/Day Years Used Date Smoking Tobacco: Never Assessed Sex and Gender Information Value Date Recorded Sex Assigned at Not on file 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
--- OUTSIDE RECORDS SUMMARY | 2025-06-27 17:24 | XMS_ITS | Encounter Summary ---
Author Organization [facility] Address [address] [place] [address] Care Team Providers Care Plastic Sewer Name Role Phone Unavailable Primary Care Provider Unavailabl e Encounter Details Date Type Department Care Team (Latest Contact Info) Description 04/09/2004 Outpatient Historical [facility] Ear, Nose and Throat 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
--- OUTSIDE RECORDS SUMMARY | 2025-06-27 17:24 | XMS_ITS | Encounter Summary ---
Author Organization [facility] Address [address] [place] [address] Care Team Providers Care Animation Director Name Role Phone Unavailable Primary Care Provider Unavailabl e Encounter Details Date Type Department Care Team (Latest Contact Info) Description 07/24/2003 Outpatient Historical [facility] Ear, Nose and Throat [address] 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
--- OUTSIDE RECORDS SUMMARY | 2025-06-27 17:24 | XMS_ITS | Encounter Summary ---
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
--- OUTSIDE RECORDS SUMMARY | 2025-06-27 17:24 | XMS_ITS | Encounter Summary ---
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
--- OUTSIDE RECORDS SUMMARY | 2025-06-27 17:24 | XMS_ITS | Encounter Summary ---
Author Organization [facility] Address [address] [place] [address] Care Team Providers Care Snow Removal Supervisor Name Role Phone Unavailable Primary Care Provider Unavailabl e Encounter Details Date Type Department Care Team (Latest Contact Info) Description 09/30/1999 Outpatient Historical [facility] Jim Zacarias MD [address] [place] [address] Unspecified chronic suppurative otitis media (Primary Dx); Unspecified conductive hearing loss Social History Tobacco Use Types Packs/Day Years Used Date Smoking Tobacco: Never Assessed Sex and Gender Information Value Date Recorded Sex Assigned at Not on file 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
--- OUTSIDE RECORDS SUMMARY | 2025-06-27 17:24 | XMS_ITS | Encounter Summary ---
Author Organization [facility] Address [address] Attn: [place] [address] Care Team Providers Care Loom Stop Checker Name Role Phone Unavailable Primary Care Provider Unavailabl e Encounter Details Date Type Department Care Team (Late st Contact Info) Description 10/13/1999 Outpatient Historical Jim Zacarias MD [address] [place] [address] Social History Tobacco Use Types Packs/Day Years Used Date Smoking Tobacco: Never Assessed Sex and Gender Information Value Date Recorded Sex Assigned at Not on file Legal Sex Male 4:49 AM APN Gender Identity Not on file Sexual Orientation Not on file documented as of this encounter Plan of Treatment Not on file documented as of this encounter Visit Diagnoses Not on filedocumented in this encounter
--- OUTSIDE RECORDS SUMMARY | 2025-06-27 17:24 | XMS_ITS | Encounter Summary ---
Author Organization [facility] Address [address] [place] [address] Care Team Providers Care Cyber Security Name Role Phone Unavailable Primary Care Provider Unavailabl e Encounter Details Date Type Department Care Team (Latest Contact Info) Description 11/18/1999 Outpatient Historical [facility] Jim Zacarias MD [address] [place] [address] Unspecified chronic suppurative otitis media (Primary Dx) Social History Tobacco Use Types Packs/Day Years Used Date Smoking Tobacco: Never Assessed Sex and Gender Information Value Date Recorded Sex Assigned at Not on file 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
--- OUTSIDE RECORDS SUMMARY | 2025-06-27 17:24 | XMS_ITS | Encounter Summary ---
Author Organization [facility] Address [address] [place] [address] Care Team Providers Care Occupational Therapist Assistants Name Role Phone Unavailable Primary Care Provider Unavailabl e Encounter Details Date Type Department Care Team (Latest Contact Info) Description 12/16/2004 Outpatient Historical [facility] [place] [address] [place] [address] Laurence French MD NO ADDRESS ON FILE CONVULSIONS, OTHER (CMS/HCC) (Primary Dx) Social History Tobacco Use Types Packs/Day Years Used Date Smoking Tobacco: Never Assessed Sex and Gender Information Value Date Recorded Sex Assigned at Not on file 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
--- OUTSIDE RECORDS SUMMARY | 2025-06-27 17:25 | XMS_ITS | Encounter Summary ---
Author Organization [facility] Address [address] [place] [address] Care Team Providers Care Macaroni Maker Name Role Phone Unavailable Primary Care Provider Unavailabl e Encounter Details Date Type Department Care Team (Latest Contact Info) Description 07/06/[address] [facility] Ear, Nose and Throat 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
--- OUTSIDE RECORDS SUMMARY | 2025-06-27 17:25 | XMS_ITS | Encounter Summary ---
Author Organization [facility] Address [address] [place] [address] Care Team Providers Care Special Needs Babysitter Name Role Phone Unavailable Primary Care Provider Unavailabl e Encounter Details Date Type Department Care Team (Latest Contact Info) Description 07/27/2001 Outpatient Historical [facility] Ear, Nose and Throat 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
--- OUTSIDE RECORDS SUMMARY | 2025-06-27 17:25 | XMS_ITS | Clinical Summary ---
Author Organization [facility] Address [address] [facility] Attn: [place] [address] Care Team Providers Care Charge Entry Specialist Name Role Phone Unavailable Primary Care [...] on file Legal Sex Male 5:16 PM MAORI PHYSIOTHERAPIST Gender Identity Not on file Sexual Orientation Not on file Plan of Treatment Health Maintenance Due Date Last Done Comments DTAP/TDAP/TD VACCINES (6 - Tdap) 2006 05/31/2000, 03/21/1997, 07/20/1996, Additional history exists HPV VACCINES (1 - 3-dose SCD M series) 2022 INFLUENZA VACCINE (#1) 2025 HEPATITIS B VACCINES Completed 03/22/1996, 1995, 1995, Additional history exists
--- OUTSIDE RECORDS SUMMARY | 2025-06-27 17:25 | XMS_ITS | Encounter Summary ---
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
--- OUTSIDE RECORDS SUMMARY | 2025-06-27 17:25 | XMS_ITS | Encounter Summary ---
Author Organization [facility] Address [address] [place] [address] Care Team Providers Care Geothermal Powerplant Mechanic Name Role Phone Unavailable Primary Care Provider Unavailabl e Encounter Details Date Type Department Care Team (Latest Contact Info) Description 03/15/2000 Outpatient Historical [facility] Sulaiman Cole [address] [place] [address] Other specified forms of hearing loss (Primary Dx) Social History Tobacco Use Types Packs/Day Years Used Date Smoking Tobacco: Never Assessed Sex and Gender Information Value Date Recorded Sex Assigned at Not on file 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
--- OUTSIDE RECORDS SUMMARY | 2025-06-27 17:25 | XMS_ITS | Encounter Summary ---
Author Organization [facility] Address [address] [place] [address] Care Team Providers Care Bottle House Cleaners Supervisor Name Role Phone Unavailable Primary Care Provider Unavailabl e Encounter Details Date Type Department Care Team (Latest Contact Info) Description 02/25/2000 Outpatient Historical [facility] Jim Zacarias MD [address] [place] [address] Unspecified chronic suppurative otitis media (Primary Dx) Social History Tobacco Use Types Packs/Day Years Used Date Smoking Tobacco: Never Assessed Sex and Gender Information Value Date Recorded Sex Assigned at Not on file Legal Sex Male 4:49 AM ROUSTABOUT 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
--- OUTSIDE RECORDS SUMMARY | 2025-06-27 17:25 | XMS_ITS | Clinical Summary ---
Author Organization [facility] Address [address] 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 Gender Identity Not on file Sexual Orientation Not on file Occupation Industry Job Start Date Job End Date Not on file Not on file Not on file Not on file Last Filed Vital Signs Vital Sign Reading Time Taken Comments Blood Pressure 123/61 09/26/2013 10:44 AM GROUND WOOD SUPERVISOR Pulse 84 09/26/2013 10:44 AM GROUND WOOD SUPERVISOR Temperature 37.2 C (99 F) 08/16/2013 5:00 PM GROUND WOOD SUPERVISOR Respiratory Rate 16 08/16/2013 5:15 PM GROUND WOOD SUPERVISOR Oxygen Saturation 97% 08/16/2013 5:15 PM GROUND WOOD SUPERVISOR Inhaled Oxygen Concentration - - Weight 78.5 kg (173 lb) 09/26/2013 10:44 AM GROUND WOOD SUPERVISOR Height 185.4 cm (6' 1 ) 09/26/2013 10:44 AM GROUND WOOD SUPERVISOR Body Mass Index 22.82 09/26/2013 10:44 AM GROUND WOOD SUPERVISOR Plan of Treatment Health Maintenance Due Date Last Done Comments DTAP/TDAP/TD VACCINES (6 - Tdap) 2006 05/31/2000, 03/21/1997, 07/20/1996, Additional history exists HPV VACCINES (1 - 3-dose SCD M series) 2022 INFLUENZA VACCINE (#1) 2025 HEPATITIS B VACCINES Completed 03/22/1996, 1995, 1995, Additional history exists Insurance [address] [place] [address] [place] Advance Directives For more information, please contact: [phone] * Full Code (Latest Code Status on File) Date Activated Date Inactivated Comments 08/16/2013 1:43 PM 08/16/2013 7:59 PM
--- OUTSIDE RECORDS SUMMARY | 2025-06-27 17:25 | XMS_ITS | Data Portability ---
Author Organization [facility] Address [address] [address] Assessment No assessment recorded. Plan of Treatment Reminders Order Date Submit Date Provider Last Modified By Organization Details Last Modified Time Details Appointments None recorded. Lab rapid strep group A, throat 2022 023 [email or web address] [facility] ([facility]), [address] [place] [address], [phone], 3 09:31:35 Referral None recorded. Procedures None recorded. Surgeries None recorded. Imaging XR, hand, 3 or more view 2024 025 [email or web address] [facility], [address] [place] [address], [address], 5 16:00:44 Medication Orders azithromyci n 250 mg tablet 2022 023 [id number], [address], [place], [id number], 5 09:26:35 Patient TargetsNo targets recorded. Patient InstructionsNo instructions recorded. Reason for Referral None Reported. Results Created Date Observation Date Name Description Value Unit Range Abnormal Flag Note LastModifiedBy Organization Detail LastModifiedTime 08/04/20 23 08/04/2023 rapid strep group A, throa t Strep positi ve Not Available [facility] ([facility]) [address] [place] [address], [phone], 08/04/2023 08:25:35 11/25/19 25 11/23/2024 XR, hand, 3 or more view No observ ation record ed. dcrase [facility] [address] [place], [address], 12/12/2024 08:55:19 Result Notes None recorded. Problems Name Problem SNOMED Code Status Onset Date Resolution Date Notes Provider Name and Address Organization Details Recorded Time Puncture wound of finger 527211179 Active 2022 David Block MD [address] [place] [address], [phone], [facility] 3 12:50:39 Contusion of right hand 86958686178347 108 Active 2024 David Block MD [address] [place] [address], [address], [facility] 5 09:48:58 Injury of hand 183541677 Active 2024 David Block MD [address] [place] [address], [address], [facility] 5 14:39:16 Problem Notes None recorded. Medical Equipment None Reported. Allergies Allergen ID Allergen Name Allergen Category Reaction Reaction Severity Criticality Documentation Date Start Date Code Code System Note Provider Name and Address Organization Details Recorded Time 14890 Phenergan medicatio n anaphylax is Not available Not available 04/03/2023 65873 8 RxNorm React ion: Anaph ylaxi s; Comme nt: Recor ded 10/21 11:10 AM by Sameer bryson, Offic e Visit ; Promo silverio; Signi yeimi ce: *; ; Not Available [facility] 3 02:28:04 42789 morphine medicatio n vomiting Not available low 05/11/2023 7052 RxNorm ROBELSA EDWARDS [facility] 3 16:06:43 75200 amoxicill in medicatio n Not available Not available Not available 08/04/2023 723 RxNorm Jazlyn Castorena daisy [facility] [place] 3 08:23:33 30464 hydrocodo ne Not available Not available Not available Not available 08/04/2023 5489 RxNorm Jazlyn Raffaele villa [facility] [place] 3 08:23:40 Medications Name Sig Start [...] Updated DateTime 5 187.96 cm 31.2 kg/m2 738252. 95 g 98 % 98 % 82 /min 98.2 [degF] 142/82 mm[Hg] Laura Morris [facility] [place] 5 09:31:54 Date Recorded Body height Respiratory rate Body mass index (BMI) Body weight Body temperature Heart rate Oxygen saturation Oxygen saturation in Arterial blood by Pulse oximetry Systolic And Diastolic Provider Name and Address Organization Details Last Updated DateTime 3 179.07 cm 20 /min 32.6 kg/m2 004508. 35 g 98 [degF] 85 /min 96 % 96 % 138/80 mm[Hg] ROBEL GRACE [facility] [place] 3 16:08:20 Date Recorded Body height Body mass index (BMI) Body weight Oxygen saturation Oxygen saturation in Arterial blood by Pulse oximetry Heart rate Body temperature Systolic And Diastolic Provider Name and Address Organization Details Last Updated DateTime 3 185.42 cm 30.3 kg/m2 092417. 25 g 95 % 95 % 86 /min 97.1 [degF] 124/80 mm[Hg] Jazlyn Castorena [facility] [place] 3 08:24:06 Social History None recorded. Functional Status None recorded. Mental Status None recorded. Family History Nothing Reported. Medical History No medical history recorded. Past Encounters Encounter ID Performer Location Encounter Start Date Encounter Closed Date Diagnosis/Indication Diagnosis SNOMED-CT Code Diagnosis ICD10 Code Diagnosis IMO Codes Diagnosis Note [id number] David Block MD [facility] ([facility]) [address] [place] [phone] 05/11/2023 15:56:54 05/11/2023 17:30:17 Puncture wound of finger 693859797 S61.239A Patient is needing tetanus, but due to cost the patient is going to get it through the health department . Discussed wound care. No sutures needed. [id number] JHONNY VALENCIA [facility] ([facility]) [address] [place] [address] 08/04/2023 08:09:37 08/04/2023 09:24:42 Sore throat 105052270 J02.9 Streptococ felicita sore throat 69168816 J02.0 Strep positive today. Start azithromyc in today. Encouraged to continue tylenol and ibuprofen as needed for pain and fever. Push fluids and use cool mist humidifier at night. Change toothbrush out after 2 days of antibiotic s. If worsening condition or no improvemen t in 5-7 days, return for further evaluation . [id number] David Block MD [facility] ([facility]) [address] [place] [phone] 11/23/2024 09:00:44 11/27/2024 16:00:43 Injury of hand 393849171 S69.91XA X-rays were obtained of the right hand. No obvious fracture noted. Hardware appeared to be intact. Contusion of right hand [id number] S60.221A Likely contusion based off history, exam, [...] or concerns today. David Block MD [address] [place], [address], [facility] 05/12/2023 12:57:47 08/04/2023 text/html Sore [...] been taking OTC medications. JHONNY VALENCIA [address] [place], [address], [facility] 08/04/2023 08:39:48 11/23/2024 text/html ROS as noted in the HPI walk inx 1 day smashed between logs then punched door wtih right hand-hx hardware x 13 years ago David Block MD [address] [place] [address], [phone], [facility] 11/26/2024 14:39:33
--- OUTSIDE RECORDS SUMMARY | 2025-06-27 17:25 | XMS_ITS | Encounter Summary ---
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
--- OUTSIDE RECORDS SUMMARY | 2025-06-27 17:25 | XMS_ITS | Encounter Summary ---
Author Organization [facility] Address [address] [place] [address] Care Team Providers Care Column Precaster Name Role Phone Unavailable Primary Care Provider Unavailabl e Encounter Details Date Type Department Care Team (Latest Contact Info) Description 06/02/2002 Outpatient Historical [facility] Ear, Nose and Throat 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
--- OUTSIDE RECORDS SUMMARY | 2025-06-27 17:25 | XMS_ITS | Encounter Summary ---
Author Organization [facility] Address [address] [place] [address] Care Team Providers Care Scale Tank Operator Name Role Phone Unavailable Primary Care Provider Unavailabl e Encounter Details Date Type Department Care Team (Latest Contact Info) Description 09/14/2001 Outpatient Historical [facility] Ear, Nose and Throat [address] [place] 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
--- OUTSIDE RECORDS SUMMARY | 2025-06-27 17:25 | XMS_ITS | Encounter Summary ---
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
--- OUTSIDE RECORDS SUMMARY | 2025-06-27 17:25 | XMS_ITS | Encounter Summary ---
Author Organization [facility] Address [address] [place] [address] Care Team Providers Care Nurse Auditor Name Role Phone Unavailable Primary Care Provider Unavailabl e Encounter Details Date Type Department Care Team (Latest Contact Info) Description 08/17/2001 Outpatient Historical [facility] Ear, Nose and Throat [address] 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
--- NOTE | 2025-06-28 08:36 | DCPLANNER ---
messaged wpfm for er f/u
== END 2025-06-27 17:46 | disposition home or self-care (01) ==
PROVIDERS: Emergency Provider Physician Assistant; PCP Electrodiagnostic Medicine
DX: R51.9 Headache, unspecified (principal); F07.81 Postconcussional syndrome
CPT/HCPCS: 36415; 70450; 70486; 72125; 96374; 96375; 99285; J1100; J2360; J3010; J7120

== ENCOUNTER 2025-07-06 08:49 | Outpatient (CLI) | payer OTHER, SELFPAY ==
--- NOTE | 2025-07-06 09:30 | MR_ITS ---
WS: [id number] MRI HEAD WITHOUT CONTRAST TECHNIQUE: Sagittal T1, T2 axial, T2 axial FLAIR, axial and coronal T1 images, axial susceptibility weighted imaging, axial diffusion weighted images, and coronal T2 images were obtained. CLINICAL INFORMATION: post concussion FINDINGS: No evidence of restricted diffusion to suggest acute ischemia. Ventricular system and basal cisterns are patent. No suspicious intracranial signal abnormalities. Normal posterior fossa. Normal vascular flow voids at the skull base. No extra-axial fluid collections. Paranasal sinuses and mastoid air cells are well aerated. Mild mucosal thickening LEFT mastoid air cells. No hemosiderin on the susceptibility weighted images. Normal optic chiasm and pituitary infundibulum. Temporal lobes and hippocampal formations are normal in appearance. No other suspicious findings. MR/MR head wo con* [id number] IMPRESSION: 1. No evidence of restricted diffusion to suggest acute ischemia. 2. No suspicious intracranial signal abnormalities. 3. No hemosiderin on the susceptibility weighted images. 4. Temporal lobes and hippocampal formations are normal. 5. No other suspicious findings.
--- NOTE | 2025-07-06 10:15 | MR_ITS ---
WS: [id number] MRA CAROTID WITHOUT AND WITH GADOLINIUM ENHANCEMENT TECHNIQUE: Axial 2-D TOF and gadolinium bolus images obtained with axial images and axial, sagittal, and coronal 2-D reformatted images. CLINICAL INFORMATION: postconcussion COMPARISON: CT 06/27/2025 FINDINGS: LEFT dominant vertebral artery. Smaller but patent RIGHT vertebral artery. RIGHT: RIGHT common carotid artery is patent. No significant RIGHT ICA stenosis. RIGHT ICA is patent to the skull base. LEFT: LEFT common carotid artery is patent. No significant LEFT ICA stenosis. LEFT ICA is patent to the skull base. Proximal subclavian arteries are patent. Normal branching aortic arch anatomy. MR/MR angio neck w con* [id number] IMPRESSION: Normal neck MRA
[2025-07-06] MEDS: gadobenate dimeglumine 20 mL vial IV (14:59)
== END 2025-07-06 08:50 | disposition home or self-care (01) ==
LOC: RAD 08:50
DX: H74.8X2 Other specified disorders of left middle ear and mastoid (principal); F07.81 Postconcussional syndrome
CPT/HCPCS: 70548; 70551